=== PATIENT | male | born 1970 | race Caucasian/White ===

== ENCOUNTER 2017-06-14 09:05 | Inpatient (IN) ==
[2017-06-14] MEDS ORDERED: CeFAZolin Syr 3,000MG/30 ML 3,000 MG/30 ML SYRINGE IVPB ONE (09:33)
--- NOTE | 2017-06-14 09:43 | Anesthesia Evaluation PreOp ---
Date of Encounter: 06/14/17 Time of Encounter: 09:41 - Past History Planned Operation: Posterior Cervical Fusion C4-7 Cardiac History: HTN, Hyperlipidemia Pulmonary History: Asthma [employer] History: Other (Depression, Cervical Myelopathy) Other Medical History: Hepatic (Fatty Liver), Diabetes Type II, Thyroid ( Hypothyroid), Other (Gout, RA) Anesthesia History: No Prior Anesthetic Complications, Past Anesthesia (ACDF, Left Knee scopes x4) Alcohol Use: none Drug use: none Medications and Allergies Allopurinol [Zyloprim 100 MG] 10/20/15 [History] Atenolol [Tenormin] 10/20/15 [History] Azithromycin [Zithromax] 1 applic PO DAILY #6 tablet 10/20/15 [Rx] Fenofibrate [Fenofibrate] 10/20/15 [History] Promethazine/Codeine [Phenergan/Codeine] 5 - 10 ml PO HS #60 syrup 10/20/15 [Rx] metFORMIN [Glucophage] 500 mg PO 10/20/15 [History] 3 Allergy/AdvReac Type Severity Reaction Status Date / Time Sulfa (Sulfonamide Allergy Hives Verified 06/07/17 09:26 Antibiotics) - Meds/Allergy Pre-op Review Medications Reviewed: Yes Allergies Reviewed: Yes Beta Blockers on Current Med List: Yes If Beta Blockers taken, Date/Time (Last Dose taken): 06/14/17 @ 07:30 Anesthesia Results - Labs Laboratory Tests 06/07/17 06/07/17 06/07/17 09:35 09:35 09:35 WBC 5.9 Hgb 14.3 Hct 42.2 Plt Count 237 INR 1.0 Sodium 139 Potassium 4.4 Chloride 104 Carbon Dioxide 23 BUN 14 Creatinine 0.85 - Imaging EKG: image reviewed (SR) Anesthesia Exam O2 Sat Height 1.85 m Height 1.85 m Height 1.85 m Weight 122.924 kg Weight 122.924 kg Weight 122.924 kg O2 Sat by Pulse Oximetry 97 Vital Signs Temp Pulse Resp BP Pulse Ox 98.8 F 57 18 125/83 97 06/14/17 09:59 06/14/17 09:59 06/14/17 09:59 06/14/17 09:59 06/14/17 09:59 Height: 6'1'' Weight: 271 NPO (# of Hours): > 8 hrs Pain Scale: 0 Pain Scale Used: Numeric (1 - 10) - HEENT Pupil (Motor): Pupils equal, EOMI Mallampati: III Teeth: Normal Oral Opening: Greater than 3 (Narrow arched palate) - [employer] LOC: Oriented [employer] Motor: Normal RUE, Normal LUE, Normal RLE, Normal LLE, Normal Face [employer] Sensory: Normal: RUE, LUE, RLE, LLE, Face - Cardiac Rhythm: Regular Murmur: None JVD: No Carotid Bruit: No - Pulmonary Breath Sounds: bilateral Clear Respiratory Effort: Symmetrical Anesthesia Assess/Plan ASA Score: 3 Modified Chioma Scale for Level of Consciousness: Cooperative, oriented, and tranquil Anesthetic Plan: General Autologous Blood: Yes Monitoring Plan: A-Line Recovery Plan: PACU
[2017-06-14] MEDS: Plasma-Lyte A (PH 7.4) 1,000 ML IVC SCH (09:53)
[2017-06-14] MEDS ORDERED: Lidocaine -MPF 2% 2 ML VIAL ONE (10:23)
[2017-06-14] MEDS ORDERED: *HR* Succinylcholine 200 MG/10 ML VIAL IVP ONE (10:23)
[2017-06-14] MEDS ORDERED: *HR* Midazolam HCl 2 MG/2 ML VIAL ONE (10:23)
[2017-06-14] MEDS ORDERED: *HR* FentaNYL (PF) 100 MCG/2 ML VIAL ONE (10:23)
[2017-06-14] MEDS ORDERED: Ondansetron 4 MG/2 ML VIAL ONE (10:23)
[2017-06-14] MEDS ORDERED: Dexamethasone 4 MG/ML VIAL ONE (10:23)
[2017-06-14] MEDS ORDERED: *HR* Propofol 200 MG/20 ML VIAL IVP ONE ×6 (10:24→16:29)
--- NOTE | 2017-06-14 10:43 | History & Physical Report ---
Date of Encounter: 06/14/17 Time of Encounter: 10:42 24 Hour HP Update - Instructions Instructions: If the History and Physical is less than 30 days old and was completed prior to A.M. admission and or procedure and has NOT been updated on calendar day of procedure please complete this update prior to performing procedure. - Update Patient reports changes in Medical Condition: No Changes in examination, assessment, or condition: No Changes in Medication: No Preop tests/diagnostics Reviewed: Yes Pre-Op MRSA Screen: Negative Surgery Remains Indicated: Yes Consent for Planned Operative Procedure(s) Verified: Yes - Pre-Operative Checklist Preoperative Checklist Indicated: No Prophylactic Antibiotic Ordered: Yes Home Medications Include Beta Jc: Yes Beta Jc Taken Today (Day of Surgery): No Beta Jc Taken Yesterday (Day Prior to Surgery): Yes Is VTE Prophylaxis Indicated?: Yes
[2017-06-14] MEDS ORDERED: Bacitracin/PolymyxinB OINT 14.17 GM TUBE TP ONE (11:05)
[2017-06-14] MEDS ORDERED: *HR* Remifentanil 1 MG VIAL IVP ONE ×3 (11:17→14:29)
[2017-06-14] MEDS ORDERED: Heparin 1,000 UNITS/500 mL 500 ML ONE (12:51)
[2017-06-14] MEDS ORDERED: EPHEDrine 50 MG/ML VIAL ONE ×2 (13:12→15:23)
[2017-06-14] MEDS ORDERED: Propofol 500 MG/50 ML INFUS..BTL ONE (14:05)
[2017-06-14] MEDS ORDERED: *HR* Phenylephrine 10 MG/ML VIAL ONE ×2 (15:21→16:37)
[2017-06-14] MEDS ORDERED: Ondansetron 4 MG/2 ML VIAL IVP ONE (17:23)
[2017-06-14] MEDS ORDERED: *HR* Promethazine 25 MG/ML VIAL IVP PRN (17:23)
[2017-06-14] MEDS ORDERED: Ringers Solution, Lactated 1,000 ML IVC SCH ×2 (17:30→20:00)
[2017-06-14] MEDS: *HR* HYDROmorphone (PF) 1 MG/ML SYRINGE IVP PRN ×2 (18:13→18:18)
--- NOTE | 2017-06-14 18:34 | Anesthesia Evaluation Post Op ---
Date of Encounter: 06/14/17 Time of Encounter: 18:33 - Vital Signs Vital Signs: Selected Entries 06/14/17 18:23 Temperature 97.3 F L Pulse Rate 101 Respiratory Rate 16 Blood Pressure 144/85 O2 Sat by Pulse Oximetry 94 Oxygen Flow Rate (LPM) 8 - Lungs Lungs: Clear Ascult./Percussion - Airway Airway: Non-obstructed - Cardiovascular Regular Rate - Mental Status Mental Status: Alert & Oriented, Answers Appropriately - Pain Pain Scale: 4 Pain Scale used: Numeric (1 - 10) - Nausea Vomiting Nausea Vomiting: Not Present - Hydration Hydration: Ice chips, Hernandez catheter - Discharge PostOp Status: Transfer Patient to floor
[2017-06-14] MEDS ORDERED: Ondansetron 4 MG/2 ML VIAL IVP PRN (19:49)
[2017-06-14] MEDS ORDERED: D5% in Water 1,000 ML IVC PRN (19:53)
[2017-06-14] MEDS ORDERED: *HR* Dextrose 50 % in Water (Syg) 50 ML SYRINGE IVP PRN (19:53)
[2017-06-14] MEDS ORDERED: Dextrose Gel 15 GM PO PRN ×2 (19:53)
[2017-06-14] MEDS: *HR* OxyCODONE Immed Rel 5 MG TABLET PO PRN (20:42)
[2017-06-14] MEDS: Insulin LISPRO 300 UNITS/3 ML VIAL SQ SCH (20:43)
[2017-06-14] MEDS: *HR* Morphine 2 MG/ML SYRINGE IVP PRN (22:21)
[2017-06-15] MEDS: CeFAZolin Premix DUPLEX 2,000 MG/50 ML BAG IVPB SCH ×2 (00:49→07:45)
[2017-06-15] MEDS: *HR* OxyCODONE Immed Rel 5 MG TABLET PO PRN ×6 (00:49→22:06)
[2017-06-15] MEDS: *HR* Morphine 2 MG/ML SYRINGE IVP PRN ×7 (01:22→23:57)
[2017-06-15] MEDS: *HR* Metformin 500 MG TABLET PO SCH ×2 (07:45→16:08)
[2017-06-15] MEDS: Insulin LISPRO 300 UNITS/3 ML VIAL SQ SCH ×4 (07:48→22:28)
[2017-06-15] MEDS: Plasma-Lyte A (PH 7.4) 1,000 ML IVC SCH (08:15)
--- NOTE | 2017-06-15 10:57 | Spine Progress Note ---
Date of Encounter: 06/15/17 Time of Encounter: 10:56 Subjective Principal diagnosis: cervical myelopathy, s/p cervical fusion Interval history: The patient complains of neck pain. AFVSS. Fires all upper extremity motor groups. Dressing with mild amount of heme drainage. Stable. Mobilize, analgesics , obtaon radiographs. Discharge planning. Objective Vital signs: Vital Signs Temp Pulse Resp BP Pulse Ox 06/15/17 08:46 96 06/15/17 06:53 98.8 F 100 18 137/90 96 06/15/17 04:59 98.6 F 96 15 154/84 95 06/15/17 01:05 97.4 F L 104 15 161/100 94 06/14/17 22:13 98.7 F 91 18 137/91 94 06/14/17 20:53 94 06/14/17 20:44 98.7 F 92 18 122/85 92 06/14/17 19:34 98.4 F 94 20 156/76 96 06/14/17 18:53 97.0 F L 102 18 130/79 93 06/14/17 18:43 98 17 134/80 93 06/14/17 18:33 98 18 127/78 92 06/14/17 18:23 97.3 F L 101 16 144/85 94 06/14/17 18:13 98 19 115/91 93 06/14/17 18:03 94 18 127/77 92 06/14/17 17:53 98.9 F 92 16 128/67 93 Intake and Output 06/14/17 06/15/17 06/15/17 23:59 07:59 15:59 Intake Total 50 / 50 120 / 120 Output Total 200 / 200 1700 / 1700 Balance -200 / -200 -1650 / -1650 120 / 120 Intake: IV Fluids 50 / 50 Ancef Premix DUPLEX 2,000 mg In 50 / 50 50 ml @ 100 mls/hr IVPB Q8H ALTAGRACIA Rx#:[id number] Oral 120 / 120 Output: Estimated Blood Loss 200 / 200 Catheter 1700 / 1700 Other: Meal Breakfast Percent of Meal Consumed 10% Blood Glucose* 149 166 - Labs Labs: Abnormal lab results POC Glucose 166 (58-89) H 06/15/17 07:39 Consult Discharge Plan - Plan Referrals: Antonio Vivas MD [Primary Care Provider] -
--- NOTE | 2017-06-15 15:54 | Orthopedic Operative Note ---
Date of procedure: 06/14/17 Pre-op diagnosis: Cervical stenosis, cervical myelopathy Post-op diagnosis: same Operation/Findings: Posterior cervical fusion C4-C7: Patient was brought to the operative theater where he successfully underwent general endotracheal intubation. He was given antibiotics prior to the start of the procedure. Compression boots and stockings were used for deep vein thrombosis prophylaxis. A Hernandez catheter was placed. Leads were placed on the upper extremities and lower extremities as well as the cranium. The neurologic monitoring personnel confirmed satisfactory readings prior to the start of the procedure. The patient was turned prone on the operative table. The area from the mid occipital to the mid thoracic spine was prepped and draped in the usual sterile fashion posteriorly. An incision was made and centered over the C4-C7 cervical spinous processes in the midline. The scoring incision was deepened through the cervical fascia. We used Bovie cautery and Poon elevators to carefully dissect the lateral masses and expose them from C4-C7. Radiographic confirmation was confirmed by the radiologist via a discussion. We then placed lateral mass screws at C4, C5, C6, and C7 bilaterally using standard techniques. 8 separate 3.5 x 12 mm lateral mass screws were placed uneventfully and confirmed via fluorographic views as having satisfactory placement. After placement of the lateral mass screws, we turned our attention to the decompression. We removed the ligamentum flavum and interspinous and supraspinous ligaments at C6-7. We proceeded proximally with the decompression. This includes a laminectomy of C6 , C5, and C4. All intervening ligamentum flavum and ligamentous material was removed. Bone obtained from the laminectomies was saved in a separate sterile container for later use. After the decompression, the spinal cord could be clearly visualized from C4-C7 and was fully decompressed. It was seen to expand nicely. We copiously irrigated the wound. We then decorticated the facet joints and lateral masses from C4-5, C5-6, and C6-7 bilaterally until bleeding bone was obtained. We then used the autograft bone obtained from the laminectomy/decompression from C4-C7 and placed it over the lateral masses and facet joints in these regions. We then placed rods within the screw heads from C4-C7 bilaterally. We subsequently placed screw caps over the Rods and locked and finally tightened the construct in standard fashion. We then closed the wound in layers with 1 Vicryl for the Fascia, 2-0 Vicryl for the more superficial fascia and 2-0 Vicryl was used for skin closure. Dermabond was paced over the wound. Sterile dressing was placed over the wound as well. Cervical collar was placed. Patient was turned supine and extubated on the Hospital Bed. The patient was in good condition at the end of the procedure. All sponge counts, needle counts, and Instruments were correct at the end of the procedure. Anesthesia: GETDamaso Surgeon: Lucio Minaya Jr Estimated blood loss (cc): 150 Condition: stable Disposition: PACU
[2017-06-15] MEDS ORDERED: Acetaminophen 325 MG TABLET PO PRN (17:03)
[2017-06-15 17:36] LABS: Basophils % 0.2 %; Eosinophils % 0.1 %; Hemoglobin 13.3 g/dL (12.9-16.9); Immature Granulocytes % 0.4 % (0-4); Lymphocytes # 1.5 K/mcL (0.6-4.6); Lymphocytes % 12.1 %; Mean Corpuscular Hemoglobin 30.4 pg (28.0-33.3); Mean Platelet Volume 9.8 fL (9.4-12.4); Monocytes % 8.1 %; Neutrophils # 9.7 K/mcL (1.6-8.9); Platelet Count 158 K/mcL (140-400); Red Blood Count 4.37 M/mcL (4.19-5.50); Red Cell Distribution Width 13.8 % (11.5-14.5); Segmented Neutrophils % 79.1 %
[2017-06-15 17:57] LABS: BUN/Creatinine Ratio 11 (6-26); Blood Urea Nitrogen 10 mg/dL (6-20); Calcium 9.2 mg/dL (8.6-10.3); Carbon Dioxide 27 mEq/L (23-29); Chloride 98 mEq/L (98-107); Glucose 182 mg/dL (70-105); Osmolality,Calculated 280 (280-300); Potassium 4.3 mEq/L (3.5-5.1); Sodium 133 mEq/L (136-145); eGFR For African Americans > 60 (> 60); eGFR For Non-African Americans > 60 (> 60)
[2017-06-16] MEDS: *HR* OxyCODONE Immed Rel 5 MG TABLET PO PRN ×3 (02:25→12:06)
[2017-06-16] MEDS: *HR* Morphine 2 MG/ML SYRINGE IVP PRN ×2 (05:23→10:01)
[2017-06-16] MEDS: *HR* Metformin 500 MG TABLET PO SCH (07:39)
[2017-06-16] MEDS: Insulin LISPRO 300 UNITS/3 ML VIAL SQ SCH ×2 (07:48→12:07)
--- NOTE | 2017-06-16 08:41 | Electrocardiograph Report ---
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
[2017-06-16 11:12] VITALS: BP 98/67
--- NOTE | 2017-06-21 10:44 | Discharge Summary ---
Date of Encounter: 06/16/17 Time of Encounter: 16:45 - Discharge Diagnosis (1) Cervical stenosis of spinal canal Priority: Primary Status: Chronic (2) Cervical myelopathy Priority: Secondary Status: Chronic - Discharge Medications Home Medications: Allopurinol [Zyloprim 100 MG] 100 mg PO DAILY 10/20/15 [History] Atenolol [Tenormin] 75 mg PO DAILY 06/14/17 [History] Atorvastatin [Lipitor] 40 mg PO HS 06/14/17 [History] Citalopram Hydrobromide [Citalopram HBr] 20 mg PO DAILY 06/14/17 [History] Levothyroxine Sodium 50 mcg PO DAILY 06/14/17 [History] Lisinopril [Zestril] 10 mg PO DAILY 06/14/17 [History] Metformin HCl [Glucophage] 1,000 mg PO BID 06/14/17 [History] Allergies/Adverse Reactions: 3 Allergy/AdvReac Type Severity Reaction Status Date / Time Sulfa (Sulfonamide Allergy Hives Verified 06/14/17 10:00 Antibiotics) - Impressions ITS Impressions Cervical Spine X-Ray 06/14/17 00:00 IMPRESSION: Intraprocedural fluoroscopic spot images as above. See separate procedure report for more information. D/ / 06/14/2017 18:50:01 Jackson Villarreal MD / wagner Interpreting Provider: Jacksno Villarreal MD Fluoroscopy 06/14/17 00:00 IMPRESSION: Intraprocedural fluoroscopic spot images as above. See separate procedure report for more information. D/ / 06/14/2017 18:50:01 Jackson Villarreal MD / wagner Interpreting Provider: Jackson Villarreal MD Cervical Spine X-Ray 06/15/17 08:00 IMPRESSION: Posterior spinal fusion C4 through C7 without hardware complication. Alignment is maintained. D/ / 06/15/2017 14:51:27 Gagandeep Hodges MD / wagner Interpreting Provider: Gagandeep Hodges MD Date of admission: 06/14/17 18:52 Primary care physician: Antonio Vivas MD Consults: 06/15/17 08:00 Consult to Occupational Therapy [CONS] Routine Comment: Evaluate, develop and implement POC Reason for Consult: ACDF C4-C7 06/14 Consult to Physical Therapy [CONS] Routine Comment: Evaluate, develop and implement POC Reason for Consult: ACDF C4-C7 06/14 - Patient Status Disposition: Home, Self-Care Functional capacity at discharge: independent ambulation Overall status at discharge: patient is progressing back to baseline - Discharge Instructions Follow Up With: Sarahi Hernandez PAC [[employer]] - 06/28/17 8:30 am Antonio Vivas MD [Primary Care Provider] - 08/02/17 3:30 pm Additional Instructions: Discharge Instructions: Cervical Please call [facility] ([phone]), your Primary Care Physician, or report to the ER if you have any of the following symptoms: Fever greater that 101.5, increased pain/redness/drainage/odor for your incision site or any other concerning symptoms. ACTIVITY * May Shower * No Tub Baths * No Smoking * No Swimming * No Driving * Wear Collar when up walking MEDICATIONS: Upon discharge resume your home medications. Take all the medications as prescribed. Take a stool softener if taking narcotic pain medications. Stool softeners are only effective if you drink enough fluids. Drink 6-8 glass of water or fluids a day, unless this is not allowed for another health problem. Despite using stool softeners, if you haven't had a bowel movement in 3 days, please switch to a gentle laxative. Gentle laxatives are sold over the counter. You should have a bowel movement within 24 hours, if not call the office. You will be discharged from the hospital with a prescription for pain medication. You are encouraged to decrease the use of narcotic pain medication as tolerated. Should you require a refill, please call the office. It is best to call 48-72 hours in advance of needing a prescription refill so you don't run out of medication. WOUND CARE: Leave zipline in place. Daily dressing change of gauze and medipore tape. Pat dry when you get out of the shower. FOLLOW-UP: Please follow up with your surgeon in the orthopedic clinic in 2 weeks from the day of surgery. References: [employer] (www.apta.org) - Diet and Activity Activity: as per physical therapy Diet: advance to your usual diet - Hospital Course Hospital course: Mr. Goyal is a 47 year old maleThe patient had an uneventful postoperative course. Progressed from intravenous analgesic needs to oral analgesic needs only. Remained neurovascularly intact and mobilized satisfactorily. All intraoperative and/or postoperative radiographic studies were satisfactory. Patient is discharged with plan for rehabilitation and follow-up in 2 weeks post discharge on analgesic medication and patient's home medications. - Time Spent with Patient Total time spent providing and/or coordinating discharge services: - VTE Documentation of Mechanical Device: Graduated compression elastic hosiery
== END 2017-06-16 15:55 | disposition home or self-care (01) | DRG 472 ==
LOC: SAMDAY 09:05 → 3NENU 18:52
PROVIDERS: ADMIT Orthopaedic Surgery Orthopaedic Surgery of the Spine; ATTEND Orthopaedic Surgery Orthopaedic Surgery of the Spine